=== PATIENT | female | born 1985 | race Caucasian/White ===

== ENCOUNTER 2019-10-06 18:54 | Emergency (ER) | payer BC, OTHER ==
[2019-10-06 18:58] VITALS: BP 132/89; PULSE 110; TEMP 98.4; BMI 36.8
[2019-10-06] MEDS ORDERED: ALBUTEROL SO4 2.5/IPRATROPIUM 0.5 INH SOL 3 ML VIAL.NEB. NEB ONE ×2 (19:44→19:58)
--- NOTE | 2019-10-06 19:44 | PDOC ---
History of Present Illness - General Chief Complaint: Respiratory Stated Complaint: COUGH Time Seen by Provider: 10/06/19 19:17 History Source: Patient Exam Limitations: No Limitations - History of Present Illness Initial Comments: 10/06/19 19:40 HISTORY OF PRESENT ILLNESS: 33-year-old woman with past medical history of seasonal allergies who presents emergency department for evaluation of dry cough for the past 10 days. Patient has been in contact with her primary doctor who told her to try [id number] remedies and she should come to the ER if symptoms do not improve. Patient reports it is been 4 more days since she was in contact with her doctor and symptoms have not improved. She denies fevers, chills, shortness of breath, abdominal pain, chest pain, nausea or vomiting. No recent travel or sick contacts. PAST MEDICAL HISTORY: Denies past medical history SURGICAL HISTORY: Denies ALLERGIES: No known drug allergies REVIEW OF SYSTEMS General/Constitutional: Denies fever or chills. Denies weakness, weight change. HEENT: Denies change in vision. Denies ear pain or discharge. Denies sore throat. Cardiovascular: Denies chest pain or shortness of breath. Respiratory: See HPI Gastrointestinal: Denies nausea, vomiting, diarrhea or constipation. Denies rectal bleeding. Genitourinary: Denies dysuria, frequency, or change in urination. Musculoskeletal: Denies joint or muscle swelling or pain. Denies neck or back pain. Skin and breasts: Denies rash or easy bruising. Neurologic: Denies headache, vertigo, loss of consciousness, or loss of sensation. Psychiatric: Denies depression or anxiety. Endocrine: Denies increased thirst. Denies abnormal weight change. Hematologic/Lymphatic: Denies anemia, easy bleeding, or history of blood clots. Allergic/Immunologic: Denies hives or skin allergy. Denies latex allergy. PHYSICAL EXAM General Appearance: Well-appearing, appropriately dressed. No apparent distress, no intoxication. HEENT: EOMI, PERRLA, normal ENT inspection, normal voice, TMs normal, pharynx normal. No conjunctival pallor. No photophobia, scleral icterus. Neck: Supple. Trachea midline. No tenderness, rigidity, carotid bruit, stridor, lymphadenopathy, or thyromegaly. Respiratory/Chest: Lungs CTAB. No shortness of breath, chest tenderness, respiratory distress, accessory muscle use. No crackles, rales, rhonchi, stridor, wheezing, dullness Cardiovascular: RRR. S1, S2. No JVD, murmur, bradycardia, tachycardia. Integumentary: Appropriate color, dry, warm. No cyanosis, erythema, jaundice or rash Past History - Past Medical History Allergies/Adverse Reactions: Allergies Allergy/AdvReac Type Severity Reaction Status Date / Time No Known Allergies Allergy Verified 10/06/19 18:58 Home Medications: Ambulatory Orders Cyclobenzaprine HCl [Flexeril -] 10 mg PO Q8H PRN #21 tablet MDD 3 05/26/17 Naproxen [Naprosyn -] 500 mg PO BID PRN #14 tablet 05/26/17 Azithromycin [Zithromax 250mg Tablets -] 250 mg PO UTDICT #6 tab 10/06/19 Benzonatate [Tessalon Pearls -] 200 mg PO TID PRN #42 cap 10/06/19 COPD: No - Psycho Social/Smoking Cessation Hx Smoking Status: No Smoking History: Never smoked Number of Cigarettes Smoked Daily: 0 Hx Alcohol Use: No Drug/Substance Use Hx: No *Physical Exam - Vital Signs Last Vital Signs Temp Pulse Resp BP Pulse Ox 98.4 F 110 H 18 132/89 98 10/06/19 18:56 10/06/19 18:56 10/06/19 18:56 10/06/19 18:56 10/06/19 18:56 ED Treatment Course - RADIOLOGY Radiology Studies Ordered: Category Date Time Status CHEST PA & LAT [RAD] Stat Radiology 10/06/19 19:40 Ordered Medical Decision Making - Medical Decision Making 10/06/19 19:42 A/P: 33-year-old woman with dry cough for 2 weeks Speaking full sentences Lungs clear to auscultation bilaterally Dry cough noted throughout exam Patient denies any shortness of breath or fevers. Chest x-ray Karen's Reassess 10/06/19 20:48 Chest x-ray is read by me: Kandi mai. Cardiac silhouette is within normal limits. Suspicious density present in the right lower lobe at the cardiac border. Laboratory testing was not completed but patient will have a maximum curb 65 score of 1. Discharge home with prescription for Z-Nate and Tessalon Perles. Patient instructed to continue her social isolation and to be in contact with her primary doctor for return to work. I discussed the physical exam findings, ancillary test results and final diagnoses with the patient. I answered all of the patient's questions. The patient was satisfied with the care received and felt comfortable with the discharge plan and treatment plan. The patient will call their primary care physician within 24 hours to arrange follow-up and will return to the Emergency Department with any new, persistent or worsening symptoms. Portions of this note have been documented using voice recognition software. As a result, errors may occur in the cannon pinion adjuster process. Effort has been made to correct all grammatical and cannon pinion adjuster error, but some may have been missed which may produce sporadic inaccurate cannon pinion adjuster or nonsensical phrases. 10/06/19 20:53 Discharge - Discharge Information Problems reviewed: Yes Clinical Impression/Diagnosis: Pneumonia Qualifiers: Pneumonia type: due to unspecified organism Laterality: right Lung location: lower lobe of lung Qualified Code(s): J18.9 - Pneumonia, unspecified organism Condition: Fair Disposition: HOME - Admission No - Additional Discharge Information Prescriptions: Benzonatate [Tessalon Pearls -] 200 mg PO TID PRN #42 cap PRN Reason: Cough Azithromycin [Zithromax 250mg Tablets -] 250 mg PO UTDICT #6 tab - Follow up/Referral - Patient Discharge Instructions Additional Instructions: Drink plenty of fluids. Take azithromycin as directed. Use Tessalon Perles 200 mg every 8 hours as needed for cough. Take Tylenol 650 mg every 4 hours or Motrin 600 mg every 6 hours for fever and pain Return to the nearest ER if short of breath or feeling sicker Followup with your doctor in one to 2 days - Post Discharge Activity
== END 2019-10-06 20:59 | disposition home or self-care (01) ==
LOC: JERFT 18:54
PROC: 3E0F7GC Introduction of Other Therapeutic Substance into Respiratory Tract, Via Natural or Artificial Opening (ICD-10-PCS; principal; 2019-10-06)
DX: J18.9 Pneumonia, unspecified organism (principal)
CPT/HCPCS: 71046-TC-FY; 99283-25